=== PATIENT | male | born 1975 | race Caucasian/White ===

== ENCOUNTER 2022-11-15 03:20 | Emergency (ER) | payer BC ==
--- OUTSIDE RECORDS SUMMARY | 2022-11-15 03:23 | XMS REPORT | Continuity of Care Document ---
:1975 Author Organization [facility] t Address [address] [place] [address] [place] [id number] Care Team Providers Name Role Phone CHET SAEED Primary Care Physician Unavailable FOG_A_Provider Attending Clinician Unavailable NORIS MEAD Attending Clinician Unavailable NORIS MEAD Attending Clinician Unavailable Only, Adc Test Attending Clinician Unavailable Zane Henry MD Attending Clinician ZANE HENRY Attending Clinician Unavailable Doctor Unassigned, [place] Attending Clinician Unavailable FOG_A_Provider Admitting Clinician Unavailable Payers Payer Name Policy Type Policy Number Effective Date Expiration Date S joanne [place] [id number] 2022 00:00:00 [place] [id number] 2019 00:00:00 Problems This patient has no known problems. Allergies, Adverse Reactions, Alerts Allergy Allergy Status Severity Reaction(s) Onset Inactive Treating Comm ents Source Name Type Date Date Clinician NO KNOWN Drug Active Univers ALLERGIE Class ity of [facility] Social History Social Habit Start Date Stop Date Quantity Comments Source Exposure to Not sure [facility] SARS-CoV-2 (event) Medica l Branch Sex Assigned At [birth year] [facility] 00:00:00 00:00:00 Medical [place] Smoking Status Start Date Stop Date Source Unknown if ever smoked [facility] Medications This patient has no known medications. Procedures Procedure Date / Time Performing Clinician Source Performed EMERGENCY SERVICES 2021-03-09 05:01:00 Doctor Unassigned, [facility] AGREEMENTS AND [place] [facility] AUTHORIZATIONS Encounters Start End Encounter Admission Attending Care Care Encounter Source Date/Time Date/Time Type Type Clinicians Facility Department ID 2022-11-14 2022-11-14 Outpatient FOG_A_Provi AOSM AOSM [id number] [place] 00:00:00 00:00:00 [place] [id number] Orthop e dic Sports Medicin e 2021-04-09 2021-04-09 Outpatient R HOLLI MEADNMVal [facility] [id number] Univers 19:30:00 19:30:00 HOLLI MEADNMVal ity [facility] 2021-04-07 2021-04-07 Outpatient R [facility] [id number] Univers 08:00:00 08:00:00 ity [facility] 2021-04-06 2021-04-06 Outpatient R [facility] [id number] Univers 09:30:00 09:30:00 ity [facility] 2021-03-11 2021-03-11 Outpatient R HOLLI MEADNMVal [facility] [id number] Univers 19:30:00 19:30:00 [facility] 2021-03-09 Laboratory Only, Adc Test [facility] [id number] Univers 09:27:50 09:42:50 Only Zane Henry [id number] ity of [place] [id number] [facility] [id number] [facility] [address] Branch 2021-03-09 2021-03-09 Outpatient R ELAINE [facility] [id number] Univers 09:30:00 09:30:00 ZANE ity [facility] 2021-03-09 2021-03-09 Orders Doctor ELIZONDO [id number] Univers 00:00:00 00:00:00 Only Unassigned, AMILCAR [id number] [facility] [id number] Aníbal [id number] [facility] 009 Branch Results This patient has no known results.
[2022-11-15] MEDS ORDERED: CYCLOBENZAPRINE 10 MG TAB ONE (04:00)
[2022-11-15] MEDS ORDERED: KETOROLAC 30 MG/ML INJ ONE (04:01)
[2022-11-15] MEDS ORDERED: HYDROCODONE/APAP 10/325 TAB ONE (04:01)
--- NOTE | 2022-11-15 05:58 | ER ---
Nurse's Notes [facility] Name: Zan Ayala Age: 47 yrs Sex: Male : 1975 Arrival Date: 11/15/2022 Time: 03:20 Bed 7 Private MD: Diagnosis: Sprain of other specified parts of left knee;Pain in left knee Presentation: 11/15 03:37 Chief complaint: Patient states: I started having pain in my left knee on Monday, I jb4 had no previous injury. I did fall on Monday due to my knee giving out on me but the pain hasn't changed. Coronavirus screen: At this time, the client does not indicate any symptoms associated with coronavirus-19. Ebola Screen: No symptoms or risks identified at this time. Initial Sepsis Screen: Does the patient meet any 2 criteria? No. Patient's initial sepsis screen is negative. Does the patient have a suspected source of infection? No. Patient's initial sepsis screen is negative. Risk Assessment: Do you want to hurt yourself or someone else? Patient reports no desire to harm self or others. Onset of symptoms was November 15, 2022. Transition of care: patient was not received from another setting of care. 03:37 Method Of Arrival: Wheelchair jb4 03:37 Acuity: MALIA 4 jb4 Historical: - Allergies: 03:45 No Known Allergies; jb4 - PMHx: 03:45 Hypertensive disorder; kidney stones; jb4 - Immunization history:: Adult Immunizations up to date. - Social history:: Smoking status: Patient denies any tobacco usage or history of. Patient uses alcohol. - Family history:: not pertinent. Screenin:49 [facility] ED Fall Risk Assessment (Adult) History of falling in the last 3 months, jb4 including since admission No falls in past 3 months (0 pts) Confusion or Disorientation No (0 pts) Score/Fall Risk Level 0 - 2 = Low Risk Oriented to surroundings, Maintained a safe environment. Abuse screen: Denies threats or abuse. Nutritional screening: No deficits noted. Tuberculosis screening: No symptoms or risk factors identified. Assessment: 03:46 General: Appears in no apparent distress. comfortable, Behavior is calm, cooperative, jb4 appropriate for age. Pain: Complains of pain in left knee Pain does not radiate. Pain currently is 6 out of 10 on a pain scale. at worst was 10 out of 10 on a pain scale. Neuro: Level of Consciousness is awake, alert, obeys commands, Oriented to person, place, time, situation. Cardiovascular: Patient's skin is warm and dry. Respiratory: Airway is patent Respiratory effort is even, unlabored, Respiratory pattern is regular, symmetrical. GI: No signs and/or symptoms were reported involving the gastrointestinal system. : No signs and/or symptoms were reported regarding the genitourinary system. EENT: No signs and/or symptoms were reported regarding the EENT system. Derm: Skin is intact, Skin is pink, warm \T\ dry. Musculoskeletal: Circulation, motion, and sensation intact. Range of motion: intact in all extremities, Swelling present in left knee. 04:30 Reassessment: Patient appears in no apparent distress at this time. Patient and/or pf1 family updated on plan of care and expected duration. Pain level reassessed. Patient is alert, oriented x 3, equal unlabored respirations, skin warm/dry/pink. Patient states feeling better. Patient states symptoms have improved. 05:30 Reassessment: Patient appears in no apparent distress at this time. Patient and/or pf1 family updated on plan of care and expected duration. Pain level reassessed. Patient is alert, oriented x 3, equal unlabored respirations, skin warm/dry/pink. Patient states feeling better. Patient states symptoms have improved. Vital Signs: 03:37 BP 172 / 85; Pulse 88; Resp 16; Temp 99.5(TE); Pulse Ox 96% on R/A; Weight 145.15 kg jb4 (R); Height 5 ft. 10 in. (R); Pain 6/10; 04:30 BP 168 / 96; Pulse 83; Resp 16; Pulse Ox 97% ; pf1 05:30 BP 151 / 75; Pulse 76; Resp 16; Pulse Ox 97% ; Pain 4/10; pf1 03:37 Body Mass Index 45.91 (145.15 kg, 177.8 cm) jb4 03:37 Pain Scale: Adult jb4 05:30 Pain Scale: Adult pf1 ED Course: 03:24 Patient arrived in ED. ja2 03:32 Regan Yuen MD is Attending Physician. sp4 03:37 Ulises, Roger, RN is Primary Nurse. jb4 03:45 Triage completed. jb4 03:45 Arm band placed on right wrist. jb4 03:49 Patient has correct armband on for positive identification. Placed in gown. Bed in low jb4 position. Call light in reach. Side rails up X 1. 03:51 Knee Left 3 View XRAY In Process Unspecified. EDMS 05:57 Constantine Delgadillo MD is Referral Physician. sp4 06:00 No provider procedures requiring assistance completed. pf1 06:00 Patient did not have IV access during this emergency room visit. pf1 06:28 Knee immobilizer applied on left knee. with crutches. pf1 Administered Medications: 04:01 Drug: [place] PO 10 mg-325 mg 1 tabs Route: PO; jb4 05:00 Follow up: Response: No adverse reaction; Marked relief of symptoms; Pain is decreased; pf1 RASS: Alert and Calm (0) 04:01 Drug: Cyclobenzaprine PO 10 mg Route: PO; jb4 05:00 Follow up: Response: No adverse reaction; Marked relief of symptoms; Pain is decreased pf1 04:01 Drug: Ketorolac IM 60 mg Route: IM; Site: right gluteus; jb4 05:00 Follow up: Response: No adverse reaction; Marked relief of symptoms; Pain is decreased pf1 06:07 Drug: immobilizer left knee 1 units Route: Topical; Site: left thigh; pf1 Medication: 06:29 VIS not applicable for this client. pf1 Outcome: 05:58 Discharge ordered by . sp4 06:28 Discharged to home via wheelchair, with crutches. pf1 06:28 Condition: improved 06:28 Discharge instructions given to patient, Instructed on discharge instructions, follow up and referral plans. Demonstrated understanding of instructions, follow-up care, medications, Prescriptions given X 3. 06:29 Patient left the ED. pf1 Signatures: Dispatcher [employer] Roger Ling, RN RN jb4 Mimi Tapia Pamala, RN RN pf1 Regan Yuen MD MD sp4
--- NOTE | 2022-11-15 05:59 | EDPHYS ---
Physician Documentation [facility] Name: Zan Ayala Age: 47 yrs Sex: Male : 1975 Arrival Date: 11/15/2022 Time: 03:20 Bed 7 Private MD: ED Physician Regan Yuen HPI: 11/15 03:32 This 47 yrs old Black Male presents to ER via Unassigned with complaints of Knee Pain. sp4 03:38 Patient is 47-year-old male who presents with acute onset of left knee pain about 6 sp4 days ago with marked worsening this morning. Patient states that he has also developed buckling and his knee when out with water and gave out on him yesterday. Patient states he went to his PCP and his PCP has referred him to orthopedist for knee assessment. Patient states there is moderate to severe pain with ambulation. . 03:38 Past medical history positive for hypertension with patient taking Amlodipine . sp4 Historical: - Allergies: 03:45 No Known Allergies; jb4 - PMHx: 03:45 Hypertensive disorder; kidney stones; jb4 - Immunization history:: Adult Immunizations up to date. - Social history:: Smoking status: Patient denies any tobacco usage or history of. Patient uses alcohol. - Family history:: not pertinent. ROS: 03:38 Constitutional: Negative for fever, chills, and weight loss. sp4 03:38 Constitutional: Negative for fever, chills, and weight loss, Eyes: Negative for injury, sp4 pain, redness, and discharge, ENT: Negative for injury, pain, and discharge, Neck: Negative for injury, pain, and swelling, Cardiovascular: Negative for chest pain, palpitations, and edema, Respiratory: Negative for shortness of breath, cough, wheezing, and pleuritic chest pain, Abdomen/GI: Negative for abdominal pain, nausea, vomiting, diarrhea, and constipation, Back: Negative for injury and pain, : Negative for injury, bleeding, discharge, and swelling, MS/Extremity: Negative for injury and deformity,, positive for spontaneous onset left knee pain, mild left knee swelling, knee buckling Skin: Negative for injury, rash, and discoloration, Neuro: Negative for headache, weakness, numbness, tingling, and seizure, Psych: Negative for depression, anxiety, Allergy/Immunology: Negative for hives, rash, and allergies Endocrine: Negative for neck swelling, polydipsia, polyuria, polyphagia, and weight changes Hematologic/Lymphatic: Negative for swollen nodes, abnormal bleeding, and unusual bruising Exam: 03:38 Constitutional: This is a well developed, well nourished patient who is awake, alert, sp4 and in no acute distress. Head/Face: Normocephalic, atraumatic. Eyes: Pupils equal round and reactive to light, extra-ocular motions intact. Lids and lashes normal. Conjunctiva and sclera are not injected. Cornea within normal limits. Periorbital areas with no swelling, redness, or edema. ENT: Nares patent. No nasal discharge, no septal abnormalities noted. Tympanic membranes are normal and external auditory canals are clear. Oropharynx with no redness, swelling, or masses, exudates, or evidence of obstruction, uvula midline. Mucous membranes moist. Neck: Trachea midline, no thyromegaly or masses palpated, and no cervical lymphadenopathy. Supple, full range of motion without nuchal rigidity, or vertebral point tenderness. No Meningismus. Chest/axilla: Normal chest wall appearance and motion. Nontender with no deformity. No lesions are appreciated. Cardiovascular: Regular rate and rhythm with a normal S1 and S2. No gallops, murmurs, or rubs. Normal PMI, no JVD. No pulse deficits. Respiratory: Lungs have equal breath sounds bilaterally, clear to auscultation and percussion. No rales, rhonchi or wheezes noted. No increased work of breathing, no retractions or nasal flaring. Abdomen/GI: Soft, non-tender, with normal bowel sounds. No distension or tympany. No guarding or rebound. No evidence of tenderness throughout. Back: No spinal tenderness. No costovertebral tenderness. Skin: Warm, dry with normal turgor. Normal color with no rashes, no lesions, and no evidence of cellulitis. MS/ Extremity: Pulses equal, no cyanosis. Neurovascular intact. Peripheral pulses intact . Neuro: Awake and alert, GCS 15, oriented to person, place, time, and situation. Cranial nerves II-XII grossly intact. Motor strength 5/5 in all extremities. Sensory grossly intact. Psych: Awake, alert, with orientation to person, place and time. Behavior, mood, and affect are within normal limits Vital Signs: 03:37 BP 172 / 85; Pulse 88; Resp 16; Temp 99.5(TE); Pulse Ox 96% on R/A; Weight 145.15 kg jb4 (R); Height 5 ft. 10 in. (R); Pain 6/10; 04:30 BP 168 / 96; Pulse 83; Resp 16; Pulse Ox 97% ; pf1 05:30 BP 151 / 75; Pulse 76; Resp 16; Pulse Ox 97% ; Pain 4/10; pf1 03:37 Body Mass Index 45.91 (145.15 kg, 177.8 cm) jb4 03:37 Pain Scale: Adult jb4 05:30 Pain Scale: Adult pf1 MDM: 04:11 Patient medically screened. sp4 05:54 Differential Diagnosis Left knee sprain, left ligamentous tear, meniscal tear, the left sp4 knee supporting ligament tear, left knee tendinitis. Data reviewed: vital signs, nurses notes, radiologic studies, plain films. ED course: Left knee x-ray is unremarkable, no acute bony findings. Patient will be provided knee immobilizer and referred to Dr. Delgadillo with orthopedic surgery. Crutches will be provided to take the weight off the left knee. . ED course: Will advise patient to look into purchasing hinged knee brace from [employer]. . 11/15 03:38 Order name: Knee Left 3 View XRAY sp4 11/15 05:54 Order name: Crutches; Complete Time: 06:09 sp4 11/15 05:54 Order name: Crutch Training; Complete Time: 06:09 sp4 Administered Medications: 04:01 Drug: [place] PO 10 mg-325 mg 1 tabs Route: PO; jb4 05:00 Follow up: Response: No adverse reaction; Marked relief of symptoms; Pain is decreased; pf1 RASS: Alert and Calm (0) 04:01 Drug: Cyclobenzaprine PO 10 mg Route: PO; jb4 05:00 Follow up: Response: No adverse reaction; Marked relief of symptoms; Pain is decreased pf1 04:01 Drug: Ketorolac IM 60 mg Route: IM; Site: right gluteus; jb4 05:00 Follow up: Response: No adverse reaction; Marked relief of symptoms; Pain is decreased pf1 06:07 Drug: immobilizer left knee 1 units Route: Topical; Site: left thigh; pf1 Disposition Summary: 11/15/22 05:58 Discharge Ordered Location: Home sp4 Problem: new sp4 Symptoms: have improved sp4 Condition: Stable sp4 Diagnosis - Sprain of other specified parts of left knee sp4 - Pain in left knee sp4 Followup: sp4 - With: Constantine Delgadillo MD - When: 10 - 14 days - Reason: Recheck today's complaints Discharge Instructions: - Discharge Summary Sheet sp4 - Acute Knee Pain, Adult sp4 Forms: - Prescription Opioid Use sp4 Prescriptions: - naproxen sodium 500 mg Oral Tablet, ER Multiphase 24 hr - take 1 tablet by ORAL route every 12 hours PRN pain; 30 tablet; Refills: 0, sp4 Product Selection Permitted - Cyclobenzaprine 10 mg Oral Tablet - take 1 tablet by ORAL route every 8 hours As needed; 30 tablet; Refills: 0, sp4 Product Selection Permitted - Tramadol 50 mg Oral Tablet - take 1 tablet by ORAL route every 6 hours as needed; 30 tablet; Refills: 0, sp4 Product Selection Permitted Signatures: Dispatcher [employer] Roger Ling RN RN jb4 Isela Patel RN RN pf1 Regan Yuen MD MD sp4
[2022-11-15 06:34] VITALS: TEMP 99.5
[2022-11-15 06:35] VITALS: O2SAT 97
[2022-11-15 06:36] VITALS: BP 151/75
--- NOTE | 2022-11-15 16:18 | RAD REPORT ---
EXAM DESCRIPTION: RAD - Knee Left 3 View - 11/15/2022 3:49 am CLINICAL HISTORY: PAIN COMPARISON: None. FINDINGS: There is no acute fracture or dislocation. The joint spaces are in anatomic alignment. No joint effusion seen on the lateral view. No radiopaque foreign bodies identified. 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 IMPRESSION: 1. No acute osseous abnormality of the left knee. Electronically signed by: Antonio Davison MD 11/15/2022 5:33 AM CDT Due to temporary technical issues with the PACS/Fluency reporting system, reports are being signed by the in house radiologist without review as a courtesy to ensure prompt reporting. The interpreting r adiologist is fully responsible for the content of the report.
== END 2022-11-15 06:29 | disposition home or self-care (01) ==
LOC: ER 03:20
DX: S83.8X2A Sprain of other specified parts of left knee, initial encounter (principal)
CPT/HCPCS: 96372; 99284